=== PATIENT | female | born 1975 | race Caucasian/White ===

== ENCOUNTER 2021-12-05 11:04 | Inpatient (IN) | payer SELFPAY ==
[~2021-12-05] VITALS: Ht 157.5 cm; Wt 61.1 kg
[2021-12-05 11:40] LABS: Calcium, Ionized (POC) 1.18 mmol/L (1.10-1.46); Chloride (POC) 85 mmol/L (98-108); Creatinine (POC) 1.4 mg/dL (0.6-1.0); Glucose (ISTAT POC) >700 mg/dL (70-99); Potassium (POC) 5.4 mmol/L (3.5-5.5); Sodium (POC) 111 mmol/L (135-148); Total CO2 (POC) 9 mmol/L (21-32)
[2021-12-05 11:56] LABS: International Normalized Ratio 1.05
[2021-12-05 11:57] LABS: Source, Urine Foley catheter
[2021-12-05 12:01] LABS: Appearance, Urine Clear (Clear); Bilirubin, Urine Neg (Neg); Blood, Urine 4+ (Neg); Color, Urine Yellow (P-Yellow); Glucose Qualitative, Urine 4+ (Neg); Ketones, Urine 4+ (Neg); Leukocyte Esterase, Urine Neg (Neg); Nitrite, Urine Neg (Neg); Protein, Urine 2+ (Neg); Specific Gravity, Urine 1.015 (1.003-1.022); Urobilinogen, Urine NORM (Normal)
[2021-12-05 12:08] LABS: Base Excess Venous -25.7 mmol/L; Bicarbonate Venous 8.2 mmol/L (24.0-30.0); PCO2 Venous 29.4 mmHg (38-42)
[2021-12-05 12:09] LABS: pH Blood Venous 6.95 (7.34-7.37)
[2021-12-05 12:11] LABS: Hematocrit 50.5 % (33.0-51.0); Hemoglobin 16.3 g/dL (11.5-16.0); Mean Corpuscular HGB 30.1 pg (26.0-34.0); Mean Corpuscular HGB Conc 32.3 g/dL (31.5-36.5); Mean Corpuscular Volume 93 fL (80-100); Mean Platelet Volume 12.5 fL (9.1-12.4); Platelet Count 473 K/mm3 (150-400); RDW Coefficient Variation 12.5 % (11.7-14.2); RDW Standard Deviation 43.4 fL (35.1-46.3); Red Blood Cell Count 5.41 M/mm3 (3.80-5.20); White Blood Cell Count 24.19 K/mm3 (4.00-11.30)
[2021-12-05 12:13] LABS: Bacteria Rare /hpf; Red Blood Cells, Urine 0-2 /hpf (0-2); Squamous Epithelial Cells Few /hpf (Few); White Blood Cells, Urine 0-2 /hpf (0-5)
[2021-12-05 12:20] LABS: BAND PERCENT MAN 1 % (0-8); BASOPHILS PERCENT MAN 0 % (0-2); EOSINOPHILS PERCENT MAN 0 % (0-6); LYMPHOCYTES ABSOLUTE MAN 0.72 K/mm3 (0.84-5.20); LYMPHOCYTES PERCENT MAN 3 % (21-46); MONOCYTES PERCENT MAN 12 % (4-13); NEUTROPHILS ABSOLUTE MAN 20.56 K/mm3 (1.96-9.15); SEG NEUTROPHILS PERCENT MAN 84 % (41-73); TOTAL CELLS COUNTED 100
[2021-12-05 12:24] LABS: U Amphetamine Screen Not Detected; U Barbituate Screen Not Detected; U Benzodiazapine Screen Not Detected; U Buprenorphine Screen Not Detected; U Cannabinoids Screen Not Detected; U Cocaine Screen Not Detected; U Methadone Screen Not Detected; U Methamphetamine Screen Not Detected; U Opiates Screen Not Detected; U Oxycodone Screen Not Detected; U Phencyclidine Screen Not Detected; U Propoxyphene Screen Not Detected
[2021-12-05 12:25] LABS: Albumin, Blood 3.4 g/dL (3.4-5.0); Albumin/Globulin Ratio 0.7 (0.8-1.8); Bilirubin, Total 0.5 mg/dL (0.1-1.0); Bun/Creatinine Ratio 39.2 (12.0-20.0); Calcium, Blood 9.4 mg/dL (8.5-10.1); Creatinine, Blood 1.43 mg/dL (0.40-1.00); Globulin, Blood 5.1 g/dL (2.2-4.0); Potassium, Blood 5.2 mmol/L (3.5-5.5); Total Protein, Blood 8.5 g/dL (6.4-8.2)
[2021-12-05 13:20] LABS: Glucose, Blood 835 mg/dL (70-99)
[2021-12-05 13:22] LABS: Potassium, Blood 4.8 mmol/L (3.5-5.5)
--- NOTE | 2021-12-05 13:40 | NUR ---
RECEIVED PT FROM NET C DEVELOPER S/P STEMI WITH STENT PLACEMENT TO LAD. PT HAS HX OF SMOKING, BUT NO OTHER KNOWN MEDICAL HISTORY. NEW DX DM/DKA. PT REPORTS POLYURIA, AND POLYPHAGIA. PT STATES THAT SHE HAS LOST A LARGE AMOUNT OF WEIGHT IN A SHORT PERIOD OF TIME. PT A&OX4. PT DENIES CP OR SOB. ECG SHOWS SR WITH RATE 90'S-ST ELEVATION NOTED, BUT NO NOTED ARRHYTHMIAS.12 LEAD ECG DONE.BP TRENDING 140'S/90-100'S. DP/PT PULSES PALPABLE AND NO NOTED EDEMA. UPPER AND LOWER EXTREMTIES APPEAR MOTTLED. TR BAND TO RIGHT RADIAL ARTEREOTOMY SITE-10 CC TO CUFF. RIGHT RADIAL SITE IS CLEAR-NO BLEEDING OR HEMATOMA. PT REPORTS "MILD" NUMBNESS TO FINGERS, BUT DENIES PAIN. LUNGS CLEAR NO NOTED COUGH. SATS>90% ON RA. NPO. PT ORAL MUCOSA IS VERY DRY. MOUTH SWAB PROVIDED. CASTILLO TO BSD WITH ADEQUATE AMOUNT OF CLEAR, YELLOW URINE TO BSD. EXTENDED DWELL CATHETER PLACED AND STAT GLUCOSE DRAWN AND SENT TO LAB. DR. MORRIS AND DR. SEPULVEDA UPDATED TO CURRENT VS, LABS, AND STATUS. ORDERS WRITTEN. NS 1 LITER BOLUS INITIATED. INSULIN DRIP @ 0.1 UNITS/KG/HR-WEIGHT ADJUSTED TO 62 KG=6.2 CC/HR. PT SPOUSE RAMIREZ IN FOR VISIT-UPDATED TO PLAN OF CARE AND CONTACT INFO OBTAINED.
[2021-12-05 13:44] LABS: Influenza A, PCR NEGATIVE (NEGATIVE); Influenza B, PCR NEGATIVE (NEGATIVE); Resp Syncytial Virus, PCR NEGATIVE (NEGATIVE); SARS-Cov-2 (COVID-19) PCR, MMC NEGATIVE (NEGATIVE)
[2021-12-05 14:39] LABS: Glucose, Blood 757 mg/dL (70-99)
[2021-12-05 15:34] LABS: Glucose, Blood 562 mg/dL (70-99)
--- NOTE | 2021-12-05 16:00 | NUR ---
PT GRIMACING AND MOANING. PT REPORTS LOW BACK PAIN 5/10 AND HEARTBURN. PT REPOSITIONED AND MED WITH ZOFRAN SHE REPORTS INTERMITTENT NAUSEA-NO IMPROVEMENT. PT GIVEN FIRST DOSE OF METOPROLOL AND LIPITOR. AIR REMOVED FROM TR BAND-PER PROTOCOL. TR BAND IN PLACE WITH 0 AIR TO CUFF X 1 HOUR. ECG CONTINUES SR WITH RATE 90'S. SBP 120'S-ZESTRIL HELD FOR NOW. EXTREMITIES REMAIN MOTTLED AND IT IS VERY DIFFICULT TO OBTAIN SPO2. DR. SEPULVEDA UPDATED OF PT COMPLAINT OF HEARTBURN AND LOW BACK PAIN-ORDERS WRITTEN.
[2021-12-05 16:37] LABS: Potassium, Blood 3.5 mmol/L (3.5-5.5)
--- NOTE | 2021-12-05 17:00 | NUR ---
PT CONTINUES TO REPORT LOW BACK PAIN / DESPITE BEING MEDICATED WITH FENTANYL 25 MCG IVP X 1. ALSO, PT CONTINUES TO REPORT "HEARTBURN." PT DENIES CP OR SOB. ECG CONTINUES SR WITH RATE 90'S. SBP TRENDING 110'S-ZESTRIL HELD. PT MED WITH MAALOX AND PEPCID FOR HEARTBURN AND NORCO FOR LOW BACK PAIN. RIGHT TR BAND REMOVED AND CLEAR OCCLUSIVE DRESSING PLACED-SEE CATH MANAGEMENT FLOWSHEET. CBG 352-INSULIN DRIP DECREASED TO 0.05 UNITS/KG/HR=3.1 UNITS/3.1 CC/HR.
--- NOTE | 2021-12-05 17:49 | NUR ---
PT SLEEPING WHEN NOT DISTURBED.DENIES PAIN WHEN AWAKENED.NO ACUTE DISTRESS NOTED AT THIS TIME.
--- NOTE | 2021-12-05 18:29 | NUR ---
PT APPEARS RESTLESS AND SLIGHTLY CONFUSED. PT STATES " I HAVE TO PEE." PT REMINDED THAT SHE HAS A CASTILLO. PT STATES "OH, YEAH." PT GRIMACING, MOANINING, AND CRYING OUT "COME ON!" WHEN ASKED WHAT PT NEEDS ASSITANCE WITH, PT STATES "I DON'T KNOW!" PT REPORTS THAT SHE FEELS LIKE "CRAP." ATTEMPTED TO REPOSITON PT TO LEFT SIDE, BUT PT SHIFTED HER HIPS BACK TO SUPINE IMMEDIATELY AFTER PILLOWS PLACED. CBG 243 IVF CHANGED TO D5 1/2 NS @ 100 CC/HR. INSULIN DRIP CONTINUES @ 0.05 UNITS/KG/HR-3.1 UNITS/3.1 CC/HR. RIGHT RADIAL SITE CLEAR-NO BLEEDING OR HEMATOMA.
[2021-12-05 20:36] LABS: Albumin/Globulin Ratio 0.7 (0.8-1.8); Bilirubin, Total 0.3 mg/dL (0.1-1.0); Bun/Creatinine Ratio 57.5 (12.0-20.0); Calcium, Blood 8.9 mg/dL (8.5-10.1); Creatinine, Blood 0.75 mg/dL (0.40-1.00); Globulin, Blood 4.1 g/dL (2.2-4.0); Total Protein, Blood 7.1 g/dL (6.4-8.2)
[2021-12-06 01:36] LABS: Albumin, Blood 2.9 g/dL (3.4-5.0); Albumin/Globulin Ratio 0.7 (0.8-1.8); Bilirubin, Total 0.3 mg/dL (0.1-1.0); Bun/Creatinine Ratio 61.9 (12.0-20.0); Calcium, Blood 8.6 mg/dL (8.5-10.1); Creatinine, Blood 0.65 mg/dL (0.40-1.00); Potassium, Blood 3.7 mmol/L (3.5-5.5); Total Protein, Blood 6.9 g/dL (6.4-8.2)
[2021-12-06 04:21] LABS: Hematocrit 39.9 % (33.0-51.0); Hemoglobin 14.4 g/dL (11.5-16.0); Mean Corpuscular HGB 30.5 pg (26.0-34.0); Mean Corpuscular HGB Conc 36.1 g/dL (31.5-36.5); Mean Platelet Volume 11.9 fL (9.1-12.4); Platelet Count 397 K/mm3 (150-400); RDW Coefficient Variation 11.8 % (11.7-14.2); Red Blood Cell Count 4.72 M/mm3 (3.80-5.20)
[2021-12-06 04:30] LABS: Mean Corpuscular Volume 85 fL (80-100)
[2021-12-06 04:46] LABS: Albumin, Blood 2.8 g/dL (3.4-5.0); Albumin/Globulin Ratio 0.7 (0.8-1.8); Bilirubin, Total 0.4 mg/dL (0.1-1.0); Bun/Creatinine Ratio 66.1 (12.0-20.0); Calcium, Blood 8.4 mg/dL (8.5-10.1); Creatinine, Blood 0.62 mg/dL (0.40-1.00); Globulin, Blood 3.9 g/dL (2.2-4.0); Potassium, Blood 3.3 mmol/L (3.5-5.5); Total Protein, Blood 6.7 g/dL (6.4-8.2)
--- NOTE | 2021-12-06 06:30 | NUR ---
SHIFT SUMMARY: PATIENT LARGELY LETHARGIC OVERNIGHT. SLEPT BETWEEN CARE IN CHAIR. INTERMITTENTLY CONFUSED, NEEDED TO BE REMINDED THAT SHE HAD A CASTILLO CATHETER IN. FOLLOWS COMMANDS. CARDIAC WNL, AFEBRILE, SR ON MONITOR WITH ST ELEVATION IN V LEAD. NO COMPLAINT OF CHEST PAIN OR SOB. BP STABLE. MOTTELING NOTED ON KNEES AND HANDS AND CHEST BUT IMPROVING. PATIENT ON ROOM AIR, LUNGS CLEAR. NO BM THIS SHIFT. CASTILLO IN PLACE DRAINING TO GRAVITY. AT BEGINNING OF SHIFT, PATIENT PULLING ON CATHETER CAUSING SOME PINK TINGED URINE. INSULING GTT OFF AT 0300, SC INSULING GIVEN AND SLIDING SCALE ADDED. PATIENT ABLE TO TOLERATE FOOD BUT SHOULD BE WATCHED, HAD DIFFICULTY SWALLOWING PUDDING.
--- NOTE | 2021-12-06 07:56 | NUR ---
PT IS AWAKE AND RESTLESS DURING BEDSIDE REPORT. ENCOURAGED TO REST, HOB PUT DOWN AND PT ABLE TO FALL ASLEEP. BLOOD DRAW DONE, INSULIN COVERAGE GIVEN. PT COOPERATIVE. FALLS BACK TO SLEEP.
[2021-12-06 08:15] LABS: Glucose, Blood 276 mg/dL (70-99)
--- NOTE | 2021-12-06 11:59 | NUR ---
RADHA HASN'T BEEN FEELING SO WELL TODAY. SHE WAS UP TO THE TOILET IN THE ROOM AROUND 0830, HER CASTILLO WAS DC'D WHILE SHE WAS UP. SHE ONLY PICKED AT HER BREAKFAST, HAS BEEN CONTINUING TO COMPLAIN OF ABDOMINAL CRAMPING. SHE HAS BEEN MEDICATED WITH MAALOX AND WITH ZOFRAN WITH NO RELIEF. HER BLOOD SUGAR WAS 354, COVERED WITH 10U INSULIN. CALL TO , ORDERS RECEIVED. AWAIT LAB. AT HER SIDE. SHE HAD A VISIT FROM , AND HER ECHO WAS COMPLETE.
[2021-12-06 12:10] LABS: Bun/Creatinine Ratio 62.3 (12.0-20.0); Calcium, Blood 9.2 mg/dL (8.5-10.1); Creatinine, Blood 0.56 mg/dL (0.40-1.00); Potassium, Blood 4.9 mmol/L (3.5-5.5)
--- NOTE | 2021-12-06 12:36 | NUR ---
RADHA CONTINUES TO FEEL THE SAME, TRIED DIFFERENT THINGS THAT MIGHT SOUND APPETIZING TO HER, SHE TOOK IN A COUPLE OF BITES OF APPLESAUCE. HER REPEAT SUGAR WAS 357, NO REAL CHANGE FROM AN HOUR AGO. PT'S WAS HERE, STATES THAT PATIENT HAS BEEN DRINKING SO MUCH ORANGE JUICE FOR THE LAST YEAR THAT SHE WAS "TURNING ACIDIC" AND THAT SHE WAS SO THIRSTY FOR THE LAST COUPLE OF WEEKS. PT'S HIPS AND PELVIS ARE UNCOMFORTABLE. STATES THIS ISN'T NEW TO HER.
--- NOTE | 2021-12-06 14:42 | NUR ---
RADHA CONTINUES TO BE VERY STOIC. IT IS VERY DIFFICULT TO ASSESS HER VIA VISUAL EXAMINATION, SHE IS QUITE DELAYED IN HER ANSWERS TO QUESTIONS, SHE DOESN'T HAVE ANY GRIMACE, ANY SMILE, SMIRK, NO FACIAL EXPRESSIONS, NO INNOTATION IN HER VOICE. SHE SAID HER STOMACH CRAMPING IS ABOUT A 6 ON THE 1-10 SCALE. SHE WILL JUST MOAN WITH HER EXHALATION, WHEN QUESTIONED ABOUT DESCRIBING, SHE ISN'T ABLE TO DO SO, OTHER THAN "CRAMPING". NO CHANGES NOTED ON THE HEART MONITOR, BP REMAINS STABLE. NAPPING INTERMITTENTLY, STILL NO APPETITE.
--- NOTE | 2021-12-06 16:04 | NUR ---
RADHA REMAINS UP AND DOWN TO THE IN-ROOM TOILET, SHE IS ABLE TO VOID WITHOUT INCIDENT. SHE CONTINUES TO HAVE BLOOD TINGED URINE FROM THE CATHETER BEING PULLED. QUESTIONED ABOUT MENSTRAL CRAMPING AND PT WASN'T ABLE TO GIVE A CLEAR ANSWER BUT DID AGREE TO A HEATING PAD. THE HEATING PAD IS SET UP AND WARMING. PT CONTINUES WITH THE MOTTLED SKIN FROM JUST ABOVE THE KNEE DOWN, WHEN ASKED ABOUT IT, SHE SAYS THAT SHE HAS HAD IT A LONG TIME. QUESTIONED ABOUT IF IT HAS BEEN WEEKS OR MONTHS AND SHE JUST SAYS, "A LONG TIME".
--- NOTE | 2021-12-06 18:18 | NUR ---
RADHA REMAINS WITHDRAWN AND DIFFICULT TO ENGAGE. SHE MOANS A LOT IN BED AND WHEN QUESTIONED ABOUT WHAT'S WRONG IT IS DIFFICULT FOR HER TO VERBALIZE. HER LACK OF APPETITE IS HINDERING HER PROGRESSION TODAY. HER STATES THAT SHE HASN'T BEEN EATING BUT DRINKING FRUIT JUICES FOR THE LAST SEVERAL MONTHS. THAT SHE HAS HAD VERY POOR INTAKE FOR THE LAST FEW WEEKS. SHE IS WEAK IN TRANS FERS AND SHAKEY. AN ORDER FOR NUTRITION AND PALLIATIVE CARE CONSULTS ARE IN, HOPING THAT PROGRESS CAN BE MADE IN HER DESIRE TO CARE FOR HERSELF AND FIND THINGS THAT WORK FOR HER NEW DIAGNOSIS. HER SUGARS REMAIN ELEVATED TODAY, COVERAGE WITH INSULIN. THE LONG ACTING WAS GIVEN IN THE BRIM STRETCHER. WILL CONTINUE TO CARE FOR HER AND REPORT OFF WHEN ABLE.
[2021-12-07 04:58] LABS: BASOPHILS ABSOLUTE AUTO 0.03 K/mm3 (0.00-0.23); BASOPHILS PERCENT AUTO 0 % (0-2); EOSINOPHILS ABSOLUTE AUTO 0.01 K/mm3 (0.00-0.68); EOSINOPHILS PERCENT AUTO 0 % (0-6); Hemoglobin 14.1 g/dL (11.5-16.0); IMMATURE GRAN ABSOLUTE AUTO 0.05 K/mm3 (0.00-0.10); IMMATURE GRAN PERCENT AUTO 0 % (0-1); LYMPHOCYTES ABSOLUTE AUTO 1.26 K/mm3 (0.84-5.20); LYMPHOCYTES PERCENT AUTO 8 % (21-46); MONOCYTES ABSOLUTE AUTO 0.79 K/mm3 (0.16-1.47); MONOCYTES PERCENT AUTO 5 % (4-13); Mean Corpuscular HGB 30.3 pg (26.0-34.0); Mean Corpuscular HGB Conc 35.3 g/dL (31.5-36.5); Mean Corpuscular Volume 86 fL (80-100); NEUTROPHILS ABSOLUTE AUTO 13.87 K/mm3 (1.96-9.15); NEUTROPHILS PERCENT AUTO 87 % (41-73); Platelet Count 463 K/mm3 (150-400); RDW Coefficient Variation 12.4 % (11.7-14.2); RDW Standard Deviation 38.8 fL (35.1-46.3); Red Blood Cell Count 4.66 M/mm3 (3.80-5.20); White Blood Cell Count 16.01 K/mm3 (4.00-11.30)
[2021-12-07 05:02] LABS: Bun/Creatinine Ratio 63.7 (12.0-20.0); Calcium, Blood 9.4 mg/dL (8.5-10.1); Creatinine, Blood 0.47 mg/dL (0.40-1.00); Potassium, Blood 4.8 mmol/L (3.5-5.5)
--- NOTE | 2021-12-07 06:29 | NUR ---
SHIFT SUMMARY: PATIENT SLEEPING BETWEEN CARE. VERY LETHARGIC AND FLAT AFFECT. PATIENT WANTS JIGGER CROWN POUNCING MACHINE OPERATOR TO ASSESS HOME HEALTH SITUATION. PATIENT DOES NOT FEEL IF SHE HAS ADEQUATE HELP AT HOME ONCE DISCHARGED FROM HOSPITAL. PATIENT LACKS MOTIVATION TO DO ANYTHING. REFUSES TO USE THE CALL SHEPARD. INSTEAD, CALLS OUT. PATIENT IS ORIENTED X 4. FOLLOWS ALL COMMANDS AND IS PLEASANT. BP WNL. LEADS ON MONITOR SHOW ST ELEVATION. AFEBRILE. ON RA MAINTAINING SATS >95%. USED TOILET MULTIPLE TIMES DURING SHIF WITH STANDBY ASSIST. NO BM THIS SHIFT. SKIN LOOKING BETTER THAN PREVIOUS SHIFT.
[2021-12-07 10:13] LABS: CHOL/HDL RATIO 4.2; Cholesterol 178 mg/dL (50-200); HDL Cholesterol 42 mg/dL (>39); LDL/HDL RATIO 2.6; Low Density Lipoprotein Chol 111 mg/dL (0-110); Triglycerides 125 mg/dL (30-160); Very Low Density Lipoprot Chol 25 mg/dL (6-32)
--- NOTE | 2021-12-07 17:19 | NUR ---
SUMMARY PT A/O X4. WITHDRAWN FLAT AFFECT. DENIES CP AND SOB. STILL HAS POOR APPETITE. DIABETIC EDUCATION T/O THE DAY. PT DOES NOT ASK QUESTIONS OR REALLY ENGAGE. SLEPT IN RECLINER MOST OF THE DAY THEN BACK TO BED THIS AFTERNOON. PT IS STEADY ON FEET. UNABLE TO GET UA D/T MISSING THE HAT OR SPECIMEN BEING CONTAMINATED BY TOILET PAPER. TALK OF DISCHARGE TODAY BUT DR. LONGORIA WANTED TO CHECK WITH HER BECK OPERATOR THEN IT GOT LATE ENOUGH IN THE DAY THE HAD TO GO TO WORK AND COULD NOT TAKE HER HOME. CASE MANAGEMENT IS HELPING PT GET INSURANCE AND GAVE A LIST OF PCP'S ACCEPTING PT'S. PT DOWNGRADED TO MEDICAL WITH TELE. REPORT GIVEN TO RICHARD TORRES AND PT IS MOVING TO ROOM 355. FAMILY UPDATED ON CHANGE TO MEDICAL STATUS. NO SIGN OF DISTRESS.
--- NOTE | 2021-12-07 19:57 | NUR ---
PT TX FROM ICU 6 TO ROOM 355- PT ORIENTED TO THE ROOM SET UP AND CALL LIGHT. PT IS SLEEPY BUT ANSWERS QUESTIONS APPROPRIATELY- DENIES ANY CHEST PAIN.
--- NOTE | 2021-12-07 22:10 | NUR ---
ST ELEVATION NOTICED ST ELEVATION ON TELEMETRY, CALLED TEACHING ASSISTANT WHO VERIFIED ST ELEVATION. PT IS ASYMPTOMATIC, STATES NO CP OR PRESSURE AND NO SOB. NOTIFIED CHARGE NURSE WHO ADVISED TO CTM FOR CP AND SOB AT THIS TIME.
[2021-12-08 01:33] LABS: Bilirubin, Urine Neg (Neg); Blood, Urine 5+ (Neg); Glucose Qualitative, Urine 3+ (Neg); Ketones, Urine 4+ (Neg); Leukocyte Esterase, Urine 2+ (Neg); Nitrite, Urine Pos (Neg); Protein, Urine 3+ (Neg); Source, Urine Clean Catch; Specific Gravity, Urine 1.015 (1.003-1.022); Urobilinogen, Urine NORM (Normal); pH, Urine 6.5 (5.0-8.0)
[2021-12-08 01:41] LABS: Appearance, Urine Hazy (Clear); Color, Urine Brown (P-Yellow)
[2021-12-08 01:42] LABS: Amorphous Light (0-Heavy); Bacteria Many /hpf; Mucus Light (0-Heavy); Red Blood Cells, Urine TNTC /hpf (0-2); Squamous Epithelial Cells Not Seen /hpf (Few)
[2021-12-08 04:29] LABS: BASOPHILS ABSOLUTE AUTO 0.02 K/mm3 (0.00-0.23); BASOPHILS PERCENT AUTO 0 % (0-2); EOSINOPHILS ABSOLUTE AUTO 0.05 K/mm3 (0.00-0.68); EOSINOPHILS PERCENT AUTO 0 % (0-6); Hematocrit 37.1 % (33.0-51.0); Hemoglobin 13.1 g/dL (11.5-16.0); IMMATURE GRAN ABSOLUTE AUTO 0.05 K/mm3 (0.00-0.10); IMMATURE GRAN PERCENT AUTO 0 % (0-1); LYMPHOCYTES PERCENT AUTO 10 % (21-46); MONOCYTES ABSOLUTE AUTO 0.68 K/mm3 (0.16-1.47); MONOCYTES PERCENT AUTO 4 % (4-13); Mean Corpuscular HGB 30.3 pg (26.0-34.0); Mean Corpuscular HGB Conc 35.3 g/dL (31.5-36.5); Mean Corpuscular Volume 86 fL (80-100); Mean Platelet Volume 11.4 fL (9.1-12.4); NEUTROPHILS ABSOLUTE AUTO 13.98 K/mm3 (1.96-9.15); NEUTROPHILS PERCENT AUTO 85 % (41-73); Platelet Count 447 K/mm3 (150-400); RDW Coefficient Variation 12.4 % (11.7-14.2); RDW Standard Deviation 38.8 fL (35.1-46.3); Red Blood Cell Count 4.33 M/mm3 (3.80-5.20); White Blood Cell Count 16.38 K/mm3 (4.00-11.30)
--- NOTE | 2021-12-08 04:41 | NUR ---
Shift Summary Pt is new to the floor with a dx of STEMI and had a stent placed this stay. On tele running SR at [address], MD is aware of NEERU. Pt denies CP or pressure and does not have any SOB. PT does have constant abdominal pain which is worse while swallowing, this pain is discouraging PO intake. She has visible blood in the urine, sample was sent off to the lab. Independent in the room, VSS, pleasant and cooperative with care.
[2021-12-08 04:46] LABS: Bun/Creatinine Ratio 49.6 (12.0-20.0); Calcium, Blood 9.4 mg/dL (8.5-10.1); Creatinine, Blood 0.48 mg/dL (0.40-1.00); Potassium, Blood 3.8 mmol/L (3.5-5.5)
--- NOTE | 2021-12-08 11:15 | NUR ---
RN NOTE MS HER DENIES ANY CHEST PAIN OR SOB THIS MORNING. SHE C/O BACK PAIN THAT SHE SAID IS FROM LYING IN BED. ENCOURAGED TO GET UP AND MOVE AROUND ROOM AND TURN IN BED. BRUISES ON KNEES FROM FALL PRIOR TO ADMISSION, SHE SAID THAT SHE WILL CALL TO AMBULATE. BED LOW, CALL LIGHT IN REACH.
--- NOTE | 2021-12-08 13:40 | NUR ---
RN NOTE CALL FROM RADIOLOGY RESIDENT FOR INCREASED ST ELEVATION. MD INFORMED BY PHOTO LAB TECHNICIAN AND ECG DONE ORDERED. VS DONE. PT DENIES CHEST PAIN, STILL HAS 4/10 BACK PAIN. WHEN QUESTIONED SHE SEEMED A LITTLE VAGUE AND HAD TROUBLE REMEMBERING THE MONTH, THEN SEEMED CLEARER IN HER ANSWERS SHORTLY AFTERWARDS. DR LONGORIA AWARE ECG DONE AND SAID HE'S ON HIS WAY TO ASSESS HER.
--- NOTE | 2021-12-08 17:12 | NUR ---
SHIFTY SUMMARY SEE PRIOR RN NOTES. EPISODE OF ST ELEVATION CALLED FROM [facility] ECG AND VS DONE. DR LONGORIA CAME AND DID BEDSIDE ASSESSMENT AND HE CALLED CARDIOLOGY. PT HAD NO CP, NO SOB, DENIED FEELING SYMPTOMATIC. ZOO CARETAKER SPENT TIME EDUCATING PT THIS AFTERNOON. PT ADMINISTED HER INSULIN DOSE AT LUNCH TIME. SHE SAID THAT SHE USED TO GIVE INSULIN TO HER MOTHER, SEEMED TO HAVE A GOOD UNDERSTANDING, BUT WILL NEED TO ADMINISTER ANOTHER DOSE OF INSULIN TO PROVE COMPETENCE AND INCREASE HER CONFIDENCE. C/O 4/10 BACK PAIN. SHE SAID SHE FEELS BETTER LYING ON HER BACK. ENCOURAGED TO CHANGE POSITIONS AND GET UP OUT OF BED. BED LOW, CALL LIGHT IN REACH.
--- NOTE | 2021-12-09 03:42 | NUR ---
SHIFT SUMMARY PATIENT IS A&O X 4- PT NEWLY DIAGNOSED WITH DM- PT EDUCATED RE: INSULIN ADMINISTRATION- PT GAVE SELF INSULIN 2X PER SHIFT WITHOUT COMPLICATIONS- MEDICATED FOR BACK PAIN- PT HAD BLOOD IN URINE- PT REPORTED BLOOD DECREASED WHEN SHE URINATES-PT REMOVED OWN RAC PIV ON ACCIDENT- REPORT THAT PT CONTINUES TO HAVE ST ELEVATION- AWARE AND CONSULTING WITH CARDIOLOGY- PT ANTICIPATES DISCHARGE THIS AM
[2021-12-09] MEDS ORDERED: ATOR80 PO (14:24)
[2021-12-09] MEDS ORDERED: ASPI81CH PO (14:24)
[2021-12-09] MEDS ORDERED: JARDIANCE10 MG PO (14:25)
[2021-12-09] MEDS ORDERED: LISI10 PO (14:26)
[2021-12-09] MEDS ORDERED: NITR.4SL SL (14:26)
[2021-12-09] MEDS ORDERED: BRILINTA90 M1 PO (14:27)
[2021-12-09] MEDS ORDERED: BASAGLAR K100 UNIT/1 SC (14:28)
--- NOTE | 2021-12-09 15:37 | NUR ---
NOTES/DISCHARGE SUMMARY: PATIENT A&OX4. PLEASANT AND COOPERATIVE WITH CARE. USES CALL LIGHT APPROPRIATELY AND ABLE TO ADVOCATE FOR HER NEEDS. AMBULATES TO BATHROOM INDEPENDENTLY. PATIENT DENIED CP/CHEST DISCOMFORT. LUNGS CLEAR T/O. PATIENT RECEIVED 1 UNIT OF INSULIN AT LUNCH TIME FOR BS OF 152. VITAL SIGNS REVIEWED. PATIENT RECEIVED ALL SCHEDULED MEDS THIS SHIFT. PATIENT DISCHARGE HOME. DISCHARGE INSTRUCTIONS PACKET GIVEN TO PATIENT. EDUCATE PATIENT REGARDING ADMITTING DIAGNOSIS, SIGN AND SYMPTOMS, TREATMENT AND NEW PRESCRIBED MEDICATIONS. PATIENT AND SPOUSE STATED UNDERSTANDING AND NO FURTHER QUESTIONS. IV DC'D. RX WAS FAXED TO PATIENT PREFERRED PHARMACY ([facility]). ALL PATIENT PERSONAL BELONGINGS WERE SENT HOME WITH THE PATIENT. PATIENT TRANSPORTED VIA WHEELCHAIR BY [employer] [employer] STAFF [facility] TO PATIENT SPOUSE PRIVATE VEHICLE.
== END 2021-12-09 17:00 | disposition home or self-care (01) | DRG 246 ==
LOC: ER 11:04 → MEDS 11:56 → ICUE 11:56 → ICUW 11:56 → MEDS 11:56 → EDLOC 11:56 → ICUE 14:06 → MEDS 12-07 17:56
PROVIDERS: Emergency Medicine; Internal Medicine Cardiovascular Disease; Student in an Organized Health Care Education/Training Program; ADMIT Internal Medicine
PROC: 027035Z Dilation of Coronary Artery, One Artery with Two Drug-eluting Intraluminal Devices, Percutaneous Approach (ICD-10-PCS; principal; 2021-12-05)
PROC: 4A023N7 Measurement of Cardiac Sampling and Pressure, Left Heart, Percutaneous Approach (ICD-10-PCS; 2021-12-05)
PROC: B2101ZZ Fluoroscopy of Single Coronary Artery using Low Osmolar Contrast (ICD-10-PCS; 2021-12-05)
PROC: B240ZZ3 Ultrasonography of Single Coronary Artery, Intravascular (ICD-10-PCS; 2021-12-05)
DX: I21.09 ST elevation (STEMI) myocardial infarction involving other coronary artery of anterior wall (principal); E11.10 Type 2 diabetes mellitus with ketoacidosis without coma; N17.9 Acute kidney failure, unspecified; E87.1 Hypo-osmolality and hyponatremia; E11.65 Type 2 diabetes mellitus with hyperglycemia; B95.62 Methicillin resistant Staphylococcus aureus infection as the cause of diseases classified elsewhere; I10 Essential (primary) hypertension; F17.210 Nicotine dependence, cigarettes, uncomplicated; Z20.822 Contact with and (suspected) exposure to COVID-19; E87.6 Hypokalemia; Z88.0 Allergy status to penicillin
CPT/HCPCS: 0241U; 36415; 51702; 76937; 80047; 80048; 80051; 80053; 80061; 81001; 81025; 82010; 82803; 82947; 83036; 83735; 83880; 84484; 84681; 85014; 85025; 85027; 85347; 85379; 85610; 85730; 87040; 87077; 87086; 87147; 87186; 92978; 93005; 93010; 93458; 99152; 99153; A9270; C1713; C1725; C1751; C1753; C1769; C1874; C1887; C8929; C9606; J1644; J1815; J2250; J2405; J3010; J7030; J7040; J7042; Q9957; Q9967

== ENCOUNTER 2023-02-03 17:58 | Observation (INO) | payer OTHER ==
[~2023-02-03] VITALS: Ht 157.5 cm; Wt 68.0 kg
[~2023-02-03 17:58] MED LIST: ASPI81CH PO; ATOR80 PO; BASAGLAR K100 UNIT/1 SC; BRILINTA90 M1 PO; JARDIANCE10 MG PO; LISI10 PO; NITR.4SL SL
[2023-02-03 18:51] LABS: BASOPHILS ABSOLUTE AUTO 0.07 K/mm3 (0.00-0.23); BASOPHILS PERCENT AUTO 1 % (0-2); EOSINOPHILS ABSOLUTE AUTO 0.45 K/mm3 (0.00-0.68); EOSINOPHILS PERCENT AUTO 4 % (0-6); Hematocrit 46.7 % (33.0-51.0); Hemoglobin 14.9 g/dL (11.5-16.0); IMMATURE GRAN ABSOLUTE AUTO 0.04 K/mm3 (0.00-0.10); IMMATURE GRAN PERCENT AUTO 0 % (0-1); LYMPHOCYTES ABSOLUTE AUTO 2.32 K/mm3 (0.84-5.20); LYMPHOCYTES PERCENT AUTO 21 % (21-46); MONOCYTES ABSOLUTE AUTO 0.47 K/mm3 (0.16-1.47); MONOCYTES PERCENT AUTO 4 % (4-13); Mean Corpuscular HGB 27.6 pg (26.0-34.0); Mean Corpuscular HGB Conc 31.9 g/dL (31.5-36.5); Mean Corpuscular Volume 87 fL (80-100); Mean Platelet Volume 10.9 fL (9.1-12.4); NEUTROPHILS ABSOLUTE AUTO 7.81 K/mm3 (1.96-9.15); NEUTROPHILS PERCENT AUTO 70 % (41-73); Platelet Count 471 K/mm3 (150-400); RDW Coefficient Variation 13.2 % (11.7-14.2); RDW Standard Deviation 41.6 fL (35.1-46.3); Red Blood Cell Count 5.39 M/mm3 (3.80-5.20); White Blood Cell Count 11.16 K/mm3 (4.00-11.30)
[2023-02-03 19:23] LABS: Albumin, Blood 4.1 g/dL (3.4-5.0); Albumin/Globulin Ratio 0.9 (0.8-1.8); Bilirubin, Total 0.4 mg/dL (0.1-1.0); Bun/Creatinine Ratio 24.5 (12.0-20.0); Calcium, Blood 9.5 mg/dL (8.5-10.1); Creatinine, Blood 1.1 mg/dL (0.40-1.00); Globulin, Blood 4.8 g/dL (2.2-4.0); Potassium, Blood 4.8 mmol/L (3.5-5.5); Total Protein, Blood 8.9 g/dL (6.4-8.2)
[2023-02-03 23:48] VITALS: BP 141/89
--- NOTE | 2023-02-04 04:16 | NUR ---
SHIFT SUMMARY PATIENT IS ALERT AND ORIENTED. PATIENT IS ADMITTED FOR A SUBACUTE INFARCT. PATIENT HAS NO NOTICABLE DECIFITS THIS SHIFT. VITAL SIGNS REVIEWED. NO ACUTE EVENTS THIS SHIFT. PATIENT HAS COMPLAINED OF NAUSEA, MEDICATED PER EMAR WITH GOOD RELIEF. PATIENT HAS NOT COMPLAINED OF SOB, VOMITTING, OR PAIN THIS SHIFT. PATIENT HAS BEEN IND IN ROOM THIS SHIFT. BED IN LOCKED AND LOWEST POSITION. CALL LIGHT IN PLACE. WILL MONITOR UNTIL SHIFT CHANGE.
[2023-02-04 04:47] VITALS: BP 184/105
--- NOTE | 2023-02-04 04:50 | NUR ---
NURSE NOTE SPOKE WITH DR BEAUCHAMP ABOUT HIGH BP. ANYTHING GREATER THAN 200 SYSTOLIC CALL PROVIDER IN THE FIRST 48HR. WILL MONITOR
[2023-02-04 05:20] LABS: BASOPHILS ABSOLUTE AUTO 0.07 K/mm3 (0.00-0.23); BASOPHILS PERCENT AUTO 1 % (0-2); EOSINOPHILS ABSOLUTE AUTO 0.59 K/mm3 (0.00-0.68); EOSINOPHILS PERCENT AUTO 5 % (0-6); Hematocrit 45.6 % (33.0-51.0); Hemoglobin 14.5 g/dL (11.5-16.0); IMMATURE GRAN ABSOLUTE AUTO 0.04 K/mm3 (0.00-0.10); IMMATURE GRAN PERCENT AUTO 0 % (0-1); LYMPHOCYTES ABSOLUTE AUTO 3.75 K/mm3 (0.84-5.20); LYMPHOCYTES PERCENT AUTO 34 % (21-46); MONOCYTES ABSOLUTE AUTO 0.63 K/mm3 (0.16-1.47); MONOCYTES PERCENT AUTO 6 % (4-13); Mean Corpuscular HGB 27.7 pg (26.0-34.0); Mean Corpuscular HGB Conc 31.8 g/dL (31.5-36.5); Mean Corpuscular Volume 87 fL (80-100); Mean Platelet Volume 11.2 fL (9.1-12.4); NEUTROPHILS ABSOLUTE AUTO 5.98 K/mm3 (1.96-9.15); NEUTROPHILS PERCENT AUTO 54 % (41-73); Platelet Count 479 K/mm3 (150-400); RDW Coefficient Variation 13.2 % (11.7-14.2); RDW Standard Deviation 41.8 fL (35.1-46.3); Red Blood Cell Count 5.24 M/mm3 (3.80-5.20); White Blood Cell Count 11.06 K/mm3 (4.00-11.30)
[2023-02-04 05:49] LABS: Albumin, Blood 4.2 g/dL (3.4-5.0); Albumin/Globulin Ratio 0.9 (0.8-1.8); Bilirubin, Total 0.7 mg/dL (0.1-1.0); Bun/Creatinine Ratio 29.3 (12.0-20.0); Calcium, Blood 9.9 mg/dL (8.5-10.1); Creatinine, Blood 0.96 mg/dL (0.40-1.00); Globulin, Blood 4.7 g/dL (2.2-4.0); Potassium, Blood 4.2 mmol/L (3.5-5.5); Total Protein, Blood 8.9 g/dL (6.4-8.2)
[2023-02-04 07:03] VITALS: BP 154/82
[2023-02-04 17:42] VITALS: BP 124/89
[2023-02-04] MEDS ORDERED: CLOP75 PO (19:49)
[2023-02-08 06:09] LABS: HEMOGLOBIN A1C 6.5 % (4.8-5.6)
== END 2023-02-04 21:08 | disposition home or self-care (01) ==
LOC: ER 17:58 → MEDS 17:59
PROVIDERS: Family Medicine; Internal Medicine; Student in an Organized Health Care Education/Training Program; ADMIT Internal Medicine
DX: I63.9 Cerebral infarction, unspecified (principal); H53.8 Other visual disturbances; I25.10 Atherosclerotic heart disease of native coronary artery without angina pectoris; I25.2 Old myocardial infarction; I11.0 Hypertensive heart disease with heart failure; I50.20 Unspecified systolic (congestive) heart failure; E13.9 Other specified diabetes mellitus without complications; D75.839 Thrombocytosis, unspecified; Z87.891 Personal history of nicotine dependence; Z88.0 Allergy status to penicillin; Z79.82 Long term (current) use of aspirin; Z79.4 Long term (current) use of insulin; Z79.899 Other long term (current) drug therapy
CPT/HCPCS: 36415; 70450; 70551; 80053; 82947; 83036; 85025; 85060; 93005; 93010; 93880; 94760; 96372; 96374; 99285-25; A9270; C8929; G0378; J1650; J1815; J2405; Q9957

== ENCOUNTER 2024-05-28 06:45 | Inpatient (IN) | payer OTHER ==
[~2024-05-28] VITALS: Ht 157.5 cm; Wt 79.6 kg
[2024-05-28] VITALS (9 sets, daily range): BP systolic 85–144; BP diastolic 52–91
[~2024-05-28 06:45] MED LIST changes: +CLOP75 PO; +MELO7.5 PO; +METF500 PO; +TOPROL XL25 MG PO
[2024-05-28] MEDS ORDERED: Ondansetron HCl 2 MG / ML 2ML Vial IV ONE ×2 (07:40→09:30)
[2024-05-28] MEDS ORDERED: NS 1,000 ML IV SCH (07:40)
[2024-05-28 07:50] LABS: BASOPHILS ABSOLUTE AUTO 0.06 K/mm3 (0.00-0.23); BASOPHILS PERCENT AUTO 0 % (0-2); EOSINOPHILS PERCENT AUTO 0 % (0-6); Hematocrit 42.1 % (33.0-51.0); Hemoglobin 12.1 g/dL (11.5-16.0); IMMATURE GRAN ABSOLUTE AUTO 0.19 K/mm3 (0.00-0.10); IMMATURE GRAN PERCENT AUTO 1 % (0-1); LYMPHOCYTES ABSOLUTE AUTO 1.54 K/mm3 (0.84-5.20); LYMPHOCYTES PERCENT AUTO 7 % (21-46); MONOCYTES ABSOLUTE AUTO 0.91 K/mm3 (0.16-1.47); MONOCYTES PERCENT AUTO 4 % (4-13); Mean Corpuscular HGB 28.6 pg (26.0-34.0); Mean Corpuscular HGB Conc 28.7 g/dL (31.5-36.5); Mean Corpuscular Volume 100 fL (80-100); Mean Platelet Volume 11.5 fL (9.1-12.4); NEUTROPHILS ABSOLUTE AUTO 19.94 K/mm3 (1.96-9.15); NEUTROPHILS PERCENT AUTO 88 % (41-73); Platelet Count 554 K/mm3 (150-400); RDW Coefficient Variation 12.7 % (11.7-14.2); RDW Standard Deviation 47.3 fL (35.1-46.3); Red Blood Cell Count 4.23 M/mm3 (3.80-5.20); White Blood Cell Count 22.64 K/mm3 (4.00-11.30)
[2024-05-28 08:16] LABS: Albumin, Blood 4.1 g/dL (3.4-5.0); Albumin/Globulin Ratio 0.9 (0.8-1.8); Bilirubin, Total 0.3 mg/dL (0.1-1.0); Bun/Creatinine Ratio 9.1 (12.0-20.0); Calcium, Blood 8.8 mg/dL (8.5-10.1); Creatinine, Blood 10.9 mg/dL (0.40-1.00); Globulin, Blood 4.6 g/dL (2.2-4.0); Potassium, Blood 5.8 mmol/L (3.5-5.5); Total Protein, Blood 8.7 g/dL (6.4-8.2)
[2024-05-28] MEDS ORDERED: Insulin Human Regular 100 UNIT in NS 100 ML IV SCH (08:25)
[2024-05-28 08:41] LABS: Ethanol (Alcohol), Blood, Med <3 mg/dL
[2024-05-28 08:42] LABS: Acetaminophen, Random <2.0 ug/mL (10.0-30.0)
[2024-05-28 09:04] LABS: Base Excess Venous -28.6 mmol/L; Bicarbonate Venous 5.8 mmol/L (24.0-30.0); PCO2 Venous 26.5 mmHg (38-42); pH Blood Venous 6.86 (7.34-7.37)
[2024-05-28] MEDS ORDERED: Sodium Bicarb 8.4% 1 MEQ/ML 50 ML Vial IV ONE ×2 (09:10→13:05)
[2024-05-28] MEDS ORDERED: D5W-1/2NS 1,000 ML IV SCH (09:10)
[2024-05-28] MEDS ORDERED: FentaNYL Citrate 50 MCG/ML 2 ML Injection IV ONE (09:30)
[2024-05-28 10:07] LABS: Source, Urine Clean Catch
[2024-05-28 10:13] LABS: Appearance, Urine Clear (Clear); Bilirubin, Urine Neg (Neg); Blood, Urine 4+ (Neg); Color, Urine Yellow (P-Yellow); Glucose Qualitative, Urine 1+ (Neg); Ketones, Urine 1+ (Neg); Leukocyte Esterase, Urine Neg (Neg); Nitrite, Urine Neg (Neg); Protein, Urine 3+ (Neg); Specific Gravity, Urine 1.025 (1.003-1.022); Urobilinogen, Urine NORM (Normal)
[2024-05-28 10:20] LABS: Bacteria Many /hpf; Squamous Epithelial Cells Many /hpf (Few); White Blood Cells, Urine 0-2 /hpf (0-5)
[2024-05-28 10:24] LABS: U Amphetamine Screen Not Detected; U Barbituate Screen Not Detected; U Benzodiazapine Screen Not Detected; U Buprenorphine Screen Not Detected; U Cannabinoids Screen Not Detected; U Cocaine Screen Not Detected; U Methadone Screen Not Detected; U Methamphetamine Screen Not Detected; U Opiates Screen Not Detected; U Oxycodone Screen Not Detected; U Phencyclidine Screen Not Detected
[2024-05-28 12:12] LABS: Base Excess Venous -25.4 mmol/L; Bicarbonate Venous 7.7 mmol/L (24.0-30.0); PCO2 Venous 23.4 mmHg (38-42)
[2024-05-28] MEDS ORDERED: Sodium Bicarb 8.4% Inj 150 MEQ in Dextrose 5% 1,000 ML IV SCH ×2 (13:00→13:30)
[2024-05-28] MEDS ORDERED: Sodium Zirconium Cyclosilicate 10 GM Packet PO SCH ×3 (13:55→16:00)
[2024-05-28] MEDS ORDERED: Heparin Sodium,Porcine 5,000 UNIT/0.5 ML SDV SC SCH (14:00)
--- NOTE | 2024-05-28 14:07 | NUR ---
pt c/o "indigestion" "chest pain" in epigastric area. Pt reported to Dr Hutton when she was here. AT this time pt is still complaining of the discomfort and Dr. Child was notified. New orders will be coming, troponin and meds for GI upset.
[2024-05-28] MEDS ORDERED: Calcium Carbonate 500 MG Tab Chew PO PRN (14:15)
[2024-05-28 14:22] LABS: Source, Urine Foley catheter
[2024-05-28 14:37] LABS: Appearance, Urine Cloudy (Clear); Bilirubin, Urine Neg (Neg); Blood, Urine 5+ (Neg); Color, Urine Yellow (P-Yellow); Glucose Qualitative, Urine 1+ (Neg); Ketones, Urine 2+ (Neg); Leukocyte Esterase, Urine 1+ (Neg); Nitrite, Urine Neg (Neg); Protein, Urine 3+ (Neg); Specific Gravity, Urine 1.025 (1.003-1.022); Urobilinogen, Urine NORM (Normal)
[2024-05-28 14:52] LABS: Bacteria Many /hpf; Red Blood Cells, Urine 25-50 /hpf (0-2); Renal Epithelial Few /hpf (0-Rare); Squamous Epithelial Cells Mod /hpf (Few); Transitional Epithelial Cells Mod /hpf (0-Rare)
[2024-05-28 14:53] LABS: Bun/Creatinine Ratio 9.3 (12.0-20.0); Calcium, Blood 8.2 mg/dL (8.5-10.1); Creatinine, Blood 10.8 mg/dL (0.40-1.00)
--- NOTE | 2024-05-28 14:58 | NUR ---
Pt states that chest discomfort relieved after taking TUMS. Tolerated taking lokelma p.o. D5 Sodium bicarb infusing at 125 cc /hour. Plan to place a powerglide/PICC line today when RN available. Also infusing insulin gtt at 4.7 cc/hour at this time.
[2024-05-28] MEDS ORDERED: Pantoprazole Sodium 40 MG Injection IV SCH (15:00)
[2024-05-28] MEDS ORDERED: NS 250 ML IV PRN (15:30)
[2024-05-28 15:46] LABS: Creatinine, Urine Random 70.7 mg/dL (27.00-270.00)
[2024-05-28] MEDS ORDERED: CefTRIAXone Sodium 2,000 MG in NS 100 ML IV SCH (16:00)
[2024-05-28 17:56] LABS: Bicarbonate Venous 18.8 mmol/L (24.0-30.0); PCO2 Venous 35.5 mmHg (38-42); pH Blood Venous 7.34 (7.34-7.37)
[2024-05-28 18:22] LABS: Bun/Creatinine Ratio 9.4 (12.0-20.0); Calcium, Blood 7.7 mg/dL (8.5-10.1); Creatinine, Blood 10.8 mg/dL (0.40-1.00); Potassium, Blood 4.5 mmol/L (3.5-5.5)
--- NOTE | 2024-05-28 19:03 | NUR ---
The pt has remained alert, oriented, calm and cooperative, and appears to be in a good mood. Vital signs have been stable. Sinus rhythm to sinus tachycardia, 93-103 bpm noted by bedside monitor. No supplemental oxygen required and lung sounds are clear except for some fine crackles in the base of the right posterior lung. No cough. Pt states she quit smoking in 2022 and only uses marijuana about 1-2 joints per day but recently has transitioned to only using edibles. Chest pain she had in the epigastric area was resolved with TUMS. Tolerated her clear liquid diet this evening very well. Insulin gtt infusing at 1.3 and [id number] gtt continues at 125 cc/hour. Powerglide was placed in the right upper arm and it draws blood. Pt had total of 96 cc urine output since arrival from the ED. She had 10 cc urine output in the ED per report.
[2024-05-28 20:13] LABS: Bun/Creatinine Ratio 9.4 (12.0-20.0); Calcium, Blood 7.4 mg/dL (8.5-10.1); Creatinine, Blood 10.6 mg/dL (0.40-1.00); Potassium, Blood 4.5 mmol/L (3.5-5.5)
[2024-05-28 22:35] LABS: Bun/Creatinine Ratio 10.7 (12.0-20.0); Calcium, Blood 7.1 mg/dL (8.5-10.1); Creatinine, Blood 10.6 mg/dL (0.40-1.00); Potassium, Blood 4.2 mmol/L (3.5-5.5)
[2024-05-29] VITALS (23 sets, daily range): BP systolic 112–163; BP diastolic 80–111
[2024-05-29 02:22] LABS: Bun/Creatinine Ratio 10.6 (12.0-20.0); Calcium, Blood 6.9 mg/dL (8.5-10.1); Creatinine, Blood 10.5 mg/dL (0.40-1.00)
[2024-05-29 06:04] LABS: BASOPHILS ABSOLUTE AUTO 0.02 K/mm3 (0.00-0.23); BASOPHILS PERCENT AUTO 0 % (0-2); EOSINOPHILS PERCENT AUTO 0 % (0-6); Hematocrit 29.3 % (33.0-51.0); IMMATURE GRAN ABSOLUTE AUTO 0.07 K/mm3 (0.00-0.10); IMMATURE GRAN PERCENT AUTO 0 % (0-1); LYMPHOCYTES ABSOLUTE AUTO 1.69 K/mm3 (0.84-5.20); LYMPHOCYTES PERCENT AUTO 11 % (21-46); MONOCYTES ABSOLUTE AUTO 1.09 K/mm3 (0.16-1.47); MONOCYTES PERCENT AUTO 7 % (4-13); Mean Corpuscular HGB Conc 34.1 g/dL (31.5-36.5); Mean Platelet Volume 10.9 fL (9.1-12.4); NEUTROPHILS ABSOLUTE AUTO 12.87 K/mm3 (1.96-9.15); NEUTROPHILS PERCENT AUTO 82 % (41-73); Platelet Count 413 K/mm3 (150-400); RDW Coefficient Variation 12.8 % (11.7-14.2); RDW Standard Deviation 39.6 fL (35.1-46.3); Red Blood Cell Count 3.45 M/mm3 (3.80-5.20); White Blood Cell Count 15.74 K/mm3 (4.00-11.30)
[2024-05-29 06:07] LABS: Mean Corpuscular Volume 85 fL (80-100)
[2024-05-29 06:08] LABS: Albumin, Blood 3.2 g/dL (3.4-5.0); Bilirubin, Total 0.2 mg/dL (0.1-1.0); Bun/Creatinine Ratio 10.7 (12.0-20.0); Calcium, Blood 6.9 mg/dL (8.5-10.1); Creatinine, Blood 10.2 mg/dL (0.40-1.00); Globulin, Blood 3.1 g/dL (2.2-4.0); Potassium, Blood 4.3 mmol/L (3.5-5.5); Total Protein, Blood 6.3 g/dL (6.4-8.2)
[2024-05-29] MEDS ORDERED: Acetaminophen 325 MG TABLET PO PRN (06:30)
--- NOTE | 2024-05-29 06:46 | NUR ---
END OF SHIFT: THIS PT WAS PLEASANT ALL NIGHT AND RESTED MOST OF THE NIGHT. SHE HAS BEEN A&O AND CONVERSATIONAL. SHE COMPLAINED OF A BIT OF PAIN THIS AM IN HER NECK/CHEST THAT SHE SAYS "FEELS SORE". SHE HAS BEEN ON RA AND BP AND HEART RATE HAVE BEEN WNL. HOURLY GLUCOSE CHECKS WERE TAKEN UNTIL SUGARS REMAINED IN LOW 100s FOR SEVERAL HOURS AND INSULIN GTT HAS BEEN ON STANDBY. NO ACUTE EVENTS OVERNIGHT.
[2024-05-29 07:47] LABS: Base Excess Venous 8.8 mmol/L; pH Blood Venous 7.44 (7.34-7.37)
[2024-05-29] MEDS ORDERED: Dextrose 5% 1,000 ML IV SCH (07:50)
[2024-05-29] MEDS ORDERED: Aspirin 81 MG Chew PO SCH (09:00)
[2024-05-29] MEDS ORDERED: Linezolid 600MG/Iso-Dext 300ML 300 ML IV SCH (09:00)
[2024-05-29] MEDS ORDERED: Clopidogrel Bisulfate 75 MG Tab PO SCH (09:00)
[2024-05-29] MEDS ORDERED: Atorvastatin 40 MG Tab PO SCH (09:00)
[2024-05-29] MEDS ORDERED: D5W-NS 1,000 ML IV SCH (09:25)
--- NOTE | 2024-05-29 09:55 | NUR ---
THIS RN ASSUMED CARE OF PT AT 0700. PT IS ALERT AND ORIENTED X4, CALLS APPROPRIATELY AND FOLLOWS COMMANDS. PT HEART RATE IN THE 70s, BLOOD PRESSURE STABLE AT 143/97 MAP OF 111, PT DENIES CHEST PAIN UPON ASSESSMENT. PT IS ON ROOM AIR SOUNDS CLEAR/DIMINISHED, SATTING >92%, PT DENIES SHORTNESS OF BREATH UPON ASSESSMENT. PT HAS CASTILLO CATHETER DRAINING TO GRAVITY. INSULIN DRIP IS RUNNING WITH Q1HR BLOOD SUGAR CHECKS. NO OTHER INTERVENTIONS AT THIS TIME. PLAN OF CARE CONTINUED.
[2024-05-29 11:27] LABS: Bun/Creatinine Ratio 10.5 (12.0-20.0); Calcium, Blood 6.6 mg/dL (8.5-10.1); Creatinine, Blood 10.1 mg/dL (0.40-1.00)
[2024-05-29 15:07] LABS: Bun/Creatinine Ratio 10.8 (12.0-20.0); Calcium, Blood 6.7 mg/dL (8.5-10.1); Creatinine, Blood 9.91 mg/dL (0.40-1.00); Potassium, Blood 3.8 mmol/L (3.5-5.5)
--- NOTE | 2024-05-29 18:24 | NUR ---
PT SUMMARY PT IS STILL ALERT AND ORIENTED X4. PT IS STILL ON THE INSULIN DRIP, GAP IS TRENDING DOWN, CREATININE IS ALSO TRENDING DOWN SLOWLY. BLOOD SUGAR HAS BEEN IN THE 140-220s. Q1HR BLOOD SUGARS ARE STILL GOING ON AND Q4HR CHEM PANELS ARE BEING DRAWN. URINE OUTPUT HAS BEEN GREAT THROUGHOUT THE DAY. NO OTHER ACUTE EVENTS TO REPORT THROUGHOUT THE DAY. PLAN OF CARE CONTINUED.
[2024-05-29 18:58] LABS: Bun/Creatinine Ratio 10.6 (12.0-20.0); Calcium, Blood 6.8 mg/dL (8.5-10.1); Creatinine, Blood 9.9 mg/dL (0.40-1.00); Potassium, Blood 3.8 mmol/L (3.5-5.5)
[2024-05-29 22:35] LABS: Bun/Creatinine Ratio 10.3 (12.0-20.0); Calcium, Blood 6.5 mg/dL (8.5-10.1); Creatinine, Blood 9.75 mg/dL (0.40-1.00); Potassium, Blood 3.7 mmol/L (3.5-5.5)
[2024-05-30] VITALS (15 sets, daily range): BP systolic 106–152; BP diastolic 75–106
[2024-05-30 02:20] LABS: BASOPHILS ABSOLUTE AUTO 0.01 K/mm3 (0.00-0.23); BASOPHILS PERCENT AUTO 0 % (0-2); EOSINOPHILS PERCENT AUTO 0 % (0-6); Hematocrit 28.2 % (33.0-51.0); Hemoglobin 9.7 g/dL (11.5-16.0); IMMATURE GRAN ABSOLUTE AUTO 0.05 K/mm3 (0.00-0.10); IMMATURE GRAN PERCENT AUTO 1 % (0-1); LYMPHOCYTES ABSOLUTE AUTO 1.73 K/mm3 (0.84-5.20); LYMPHOCYTES PERCENT AUTO 18 % (21-46); MONOCYTES ABSOLUTE AUTO 0.69 K/mm3 (0.16-1.47); MONOCYTES PERCENT AUTO 7 % (4-13); Mean Corpuscular HGB 29.6 pg (26.0-34.0); Mean Corpuscular HGB Conc 34.4 g/dL (31.5-36.5); Mean Corpuscular Volume 86 fL (80-100); NEUTROPHILS ABSOLUTE AUTO 7.41 K/mm3 (1.96-9.15); NEUTROPHILS PERCENT AUTO 75 % (41-73); Platelet Count 354 K/mm3 (150-400); RDW Coefficient Variation 13.1 % (11.7-14.2); RDW Standard Deviation 40.5 fL (35.1-46.3); Red Blood Cell Count 3.28 M/mm3 (3.80-5.20); White Blood Cell Count 9.89 K/mm3 (4.00-11.30)
[2024-05-30 02:51] LABS: Bun/Creatinine Ratio 10.4 (12.0-20.0); Calcium, Blood 6.4 mg/dL (8.5-10.1); Creatinine, Blood 9.04 mg/dL (0.40-1.00); Potassium, Blood 4.4 mmol/L (3.5-5.5)
--- NOTE | 2024-05-30 05:42 | NUR ---
END OF SHIFT: PT REMAINS WITH AN ANION GAP OPEN AND CURRENTLY IS AT 16 WITH INSULIN AND D5NS GTTs RUNNING. RATE OF D5NS INCREASED OVERNIGHT WITH BG IN 150s. PT RESTED MOST OF THE NIGHT AND NO ACUTE EVENTS OCCURRED. PT ON RA, HR AND BP WITHIN NORMAL LIMITS, A&O
[2024-05-30 06:59] LABS: Bun/Creatinine Ratio 10.2 (12.0-20.0); Calcium, Blood 6.7 mg/dL (8.5-10.1); Creatinine, Blood 8.98 mg/dL (0.40-1.00); Potassium, Blood 3.2 mmol/L (3.5-5.5)
[2024-05-30 07:53] LABS: pH Blood Venous 7.44 (7.34-7.37)
[2024-05-30 07:54] LABS: Base Excess Venous 6.8 mmol/L; Bicarbonate Venous 29.2 mmol/L (24.0-30.0)
[2024-05-30] MEDS ORDERED: Potassium Chloride 20 MEQ TabCR PO SCH (08:05)
[2024-05-30] MEDS ORDERED: Ondansetron HCl 2 MG / ML 2ML Vial ONE (08:39)
[2024-05-30] MEDS ORDERED: Ondansetron HCl 2 MG / ML 2ML Vial IV PRN (08:40)
--- NOTE | 2024-05-30 08:45 | NUR ---
THIS RN ASSUMED CARE OF PT AT 0700. PT IS ALERT AND ORIENTED X4, FOLLOWS COMMANDS AND CALLS OUT APPROPRIATELY. PT HEART RATE IN THE 70-80s, BLOOD PRESSURE STABLE AT 145/97, PT DENIES CHEST PAIN UPON ASSESSMENT. PT SOUNDS CLEAR/DIMINISHED, ON ROOM AIR SATTING >95%, PT DENIES SHORTNESS OF BREATH. PT HAS CASTILLO CATHETER IN DRAINING TO GRAVITY. PT IS ON AN INSULIN DRIP, WAS BY THIS MORNING, NEW ORDERS HAVE BEEN PLACED FOR LONG ACTING AND TRANSITIONING PT OFF INSULIN DRIP AND NEW ORDERS FOR PO POTASSIUM PLACED. PT HAD SOME N/V AROUND 0845, NOTIFIED AND NEW ORDERS PLACED. NO OTHER INTERVENTIONS AT THIS TIME. PLAN OF CARE CONTINUED.
[2024-05-30] MEDS ORDERED: Insulin Glargine-Yfgn 100 Unit/mL 3 ML SYR SC ONE (09:00)
[2024-05-30] MEDS ORDERED: Insulin Human Lispro 100 Units/ML 3ML Syringe SC SCH ×2 (12:00→16:30)
[2024-05-30 14:40] LABS: Bun/Creatinine Ratio 9.7 (12.0-20.0); Calcium, Blood 6.8 mg/dL (8.5-10.1); Creatinine, Blood 8.31 mg/dL (0.40-1.00)
--- NOTE | 2024-05-30 20:45 | NUR ---
ASSUMPTION OF CARE/ASSESSMENT: ASSUMED CARE OF PT AT 1900; BEDSIDE SHIFT REPORT RECIEVED FROM DEYANIRA TORRES. PT IN BED, A&O X 4, PLEASANT AND COOPERATIVE. ON RA, LUNGS CLEAR T/O, DIM IN THE BASES AND DENIES SOB; SPO2 94<. SR ON MONITOR WITH HR 70'S, SBP 140-150, AND DENIES CHEST PAIN/PRESSURE AT THIS TIME. TEMP CASTILLO IN PLACE PER NEPHROLOGY; URINE CLEAR, YELLOW AND GOOD OUTPUT NOTED. ABD ROUND, SOFT AND NON-TENDER; TOLERATING CLEAR LIQUID DIET WELL. PG TO ROBERT SL AND PATENT, PIV TO LISA PATENT AND INFUSING ANTIBIOTIC. PT ABLE TO MAKE NEEDS KNOWN, BED LOWERED AND CALL LIGHT IN REACH.
[2024-05-30] MEDS ORDERED: HydrALAZINE HCl 20 MG / ML 1ML Vial IV PRN (23:05)
[2024-05-31] VITALS (10 sets, daily range): BP systolic 141–167; BP diastolic 88–123
[2024-05-31 04:58] LABS: BASOPHILS ABSOLUTE AUTO 0.02 K/mm3 (0.00-0.23); BASOPHILS PERCENT AUTO 0 % (0-2); EOSINOPHILS ABSOLUTE AUTO 0.01 K/mm3 (0.00-0.68); EOSINOPHILS PERCENT AUTO 0 % (0-6); Hematocrit 28.3 % (33.0-51.0); Hemoglobin 9.1 g/dL (11.5-16.0); IMMATURE GRAN ABSOLUTE AUTO 0.02 K/mm3 (0.00-0.10); IMMATURE GRAN PERCENT AUTO 0 % (0-1); LYMPHOCYTES ABSOLUTE AUTO 1.94 K/mm3 (0.84-5.20); LYMPHOCYTES PERCENT AUTO 25 % (21-46); MONOCYTES ABSOLUTE AUTO 0.56 K/mm3 (0.16-1.47); MONOCYTES PERCENT AUTO 7 % (4-13); Mean Corpuscular HGB 28.4 pg (26.0-34.0); Mean Corpuscular HGB Conc 32.2 g/dL (31.5-36.5); Mean Corpuscular Volume 88 fL (80-100); Mean Platelet Volume 10.9 fL (9.1-12.4); NEUTROPHILS ABSOLUTE AUTO 5.13 K/mm3 (1.96-9.15); NEUTROPHILS PERCENT AUTO 67 % (41-73); Platelet Count 317 K/mm3 (150-400); RDW Coefficient Variation 12.6 % (11.7-14.2); RDW Standard Deviation 41.2 fL (35.1-46.3); White Blood Cell Count 7.68 K/mm3 (4.00-11.30)
[2024-05-31 05:28] LABS: Albumin, Blood 2.8 g/dL (3.4-5.0); Anion Gap 11 mmol/L (3-11); Blood Urea Nitrogen 70 mg/dL (8-24); Bun/Creatinine Ratio 9.9 (12.0-20.0); CO2, Blood 28 mmol/L (21-32); Calcium, Blood 7.1 mg/dL (8.5-10.1); Chloride, Blood 101 mmol/L (98-108); Creatinine, Blood 7.05 mg/dL (0.40-1.00); Glomerular Filtration Rate 7 (60-); Glucose, Blood 120 mg/dL (70-99); Iron Serum 77 ug/dL (50-170); Percent Saturation 39.5 % (15.0-50.0); Phosphorus, Blood 4.4 mg/dL (2.5-4.9); Potassium, Blood 3.8 mmol/L (3.5-5.5); Sodium, Blood 136 mmol/L (136-145); Total Iron Binding Capacity 195 ug/dL (250-450)
--- NOTE | 2024-05-31 06:12 | NUR ---
SHIFT SUMMARY: NO ACUTE CHANGES OVERNIGHT; VSS THROUGHOUT THE SHIFT. GOOD URINE OUTPUT THIS SHIFT. PT SLEPT FOR MAJORITY OF THE NIGHT. USING CALL LIGHT APPROPRIATE;Y. BED LOWERED, CALL LIGHT IN REACH. WILL REPORT OFF TO ONCOMING RN.
--- NOTE | 2024-05-31 07:00 | NUR ---
ASSUMED CARE OF PATIENT AT APPROXIMATELY 0700. REPORT RECEIVED FROM MELISSA ALVARADO. PT AWAKE IN BED, INTERACTING c STAFF APPROPRIATELY DURING BEDSIDE REPORT. CONTINUOUS CARDIAC MONITORING IN PLACE SHOWS SR, BP STABLE. ON RA c O2 SATURATION > 92%. CASTILLO PATENT AND DRAINING TO GRAVITY. NO ACUTE NEEDS IDENTIFIED AT THIS TIME. SEE SHIFT ASESSMENT FOR FULL DETAILS.
[2024-05-31] MEDS ORDERED: Insulin Human Lispro 100 Units/ML 3ML Syringe SC SCH (11:30)
--- NOTE | 2024-05-31 15:56 | NUR ---
REPORT GIVEN TO RACHAEL DIGGS RN, TO ASSUME CARE OF PATIENT
--- NOTE | 2024-05-31 18:09 | NUR ---
ASSUMED CARE OF PT AT 1600. NEURO: PT ALERT AND ORIENTED. ABLE TO MAKE HER NEEDS KNOWN. MOVES EXTREMITITES WELL. UP TO RECLINER FOR DINNER. CARDIAC: SINUS RHYTHM HR 60S, HTN PULMONARY: LUNGS CLEAR TO AUSCULATION GI: NORMOACTIVE BOWEL TONES. LAST BM: 06/01/23. DENIES ANY NAUSEA. DIET ADVANCED TO CC/RENAL. : URINE IS CLEAR/YELLOW, CASTILLO REMOVED AT 1700 PT DUE TO VOID. MOBILITY: PT MOVED INDEPENDENTLY TO RECLINER.
[2024-06-01] VITALS: BP 151/97
[2024-06-01 03:36] VITALS: BP 155/97
[2024-06-01 03:58] LABS: Albumin, Blood 2.8 g/dL (3.4-5.0); Anion Gap 10 mmol/L (3-11); Blood Urea Nitrogen 54 mg/dL (8-24); Bun/Creatinine Ratio 11.7 (12.0-20.0); CO2, Blood 26 mmol/L (21-32); Calcium, Blood 7.8 mg/dL (8.5-10.1); Chloride, Blood 105 mmol/L (98-108); Creatinine, Blood 4.62 mg/dL (0.40-1.00); Glomerular Filtration Rate 11 (60-); Glucose, Blood 122 mg/dL (70-99); Phosphorus, Blood 3.4 mg/dL (2.5-4.9); Potassium, Blood 3.8 mmol/L (3.5-5.5); Sodium, Blood 137 mmol/L (136-145)
[2024-06-01 04:00] VITALS: BP 155/97
--- NOTE | 2024-06-01 06:00 | NUR ---
SHIFT SUMMARY PATIENT SLEPT MOST OF SHIFT. PATIENT UP TO BATHROOM IN ROOM SEVERAL TIMES WITHOUT CALLING NURSE FOR HELP. PATIENT HAS CALL LIGHT AND DOES USE IT IF SHE NEEDS SOMETHING. PATEINT IS A&OX4. HE IN THE 80-90'S AND SBP 150'S. HAS POWERGLIDE IN RIGHT UPPER ARM AND 20G IN LEFT UPPER ARM BOTH SALINE LOCKED. CALL LIGHT WITHIN REACH.
[2024-06-01] MEDS ORDERED: Insulin Glargine-Yfgn 100 Unit/mL 3 ML SYR SC SCH (09:00)
[2024-06-01] MEDS ORDERED: Lisinopril 10 MG Tab PO SCH (09:00)
[2024-06-01] MEDS ORDERED: HUMALOG KW100 UNIT/1 (09:39)
--- NOTE | 2024-06-01 10:58 | NUR ---
DISCHARGE PAPERWORK REVIEWED WITH PT. IV's REMOVED, PT TOLERATED WELL. PT AMBULATED INDEPENDENTLY FROM UNIT WITH FAMILY FRIEND.
--- NOTE | 2024-06-01 12:34 | NUR ---
ASSUMED CARE OF PATIENT AT APPROXIMATELY 0700. RECEIVED REPORT FROM MELISSA BAIRD. PT IN BED, ALERT AND INTERACTING WITH STAFF. CONTINUOUS CARDIAC MONITORING IN PLACE SHOWS SR, STABLE BP. PT IS ON ROOM AIR WITH SPO2 GREATER THAN 95%. NO NEEDS IDENTIFIED AT THIS MOMENT. SEE SHIFT ASESSMENT FOR FULL DETAILS.
== END 2024-06-01 11:00 | disposition home or self-care (01) | DRG 682 ==
LOC: ER 06:45 → ICUE 11:09 → ERHOLD 11:09 → ICUE 12:25
PROVIDERS: Emergency Medicine; Hospitalist; Internal Medicine; Internal Medicine Nephrology; ADMIT Internal Medicine
DX: N17.0 Acute kidney failure with tubular necrosis (principal); A41.9 Sepsis, unspecified organism; E11.10 Type 2 diabetes mellitus with ketoacidosis without coma; N39.0 Urinary tract infection, site not specified; I50.22 Chronic systolic (congestive) heart failure; I13.0 Hypertensive heart and chronic kidney disease with heart failure and stage 1 through stage 4 chronic kidney disease, or unspecified chronic kidney disease; I42.2 Other hypertrophic cardiomyopathy; E87.5 Hyperkalemia; E87.8 Other disorders of electrolyte and fluid balance, not elsewhere classified; E86.0 Dehydration; E11.22 Type 2 diabetes mellitus with diabetic chronic kidney disease; N18.32 Chronic kidney disease, stage 3b; E78.5 Hyperlipidemia, unspecified; I25.10 Atherosclerotic heart disease of native coronary artery without angina pectoris; Z88.0 Allergy status to penicillin; Z88.8 Allergy status to other drugs, medicaments and biological substances; Z79.82 Long term (current) use of aspirin; Z79.4 Long term (current) use of insulin; Z79.899 Other long term (current) drug therapy; I25.2 Old myocardial infarction; Z86.73 Personal history of transient ischemic attack (TIA), and cerebral infarction without residual deficits; Z95.5 Presence of coronary angioplasty implant and graft
CPT/HCPCS: 36415; 51702; 71045; 76770; 80048; 80053; 80069; 80320; 81001; 81025; 82010; 82570; 82803; 82947; 83540; 83550; 83605; 83690; 84300; 84484; 84540; 85025; 87086; 93306; 96361-59; 96374-59; 96375-59; 96376-59; 99285-25; A9270; C1751; G0480; J0696; J1644; J1815; J2020; J2405; J2470; J3010; J7030; J7042; J7050; J7070

== ENCOUNTER 2024-06-06 16:38 | Emergency (ER) | payer OTHER ==
[~2024-06-06] VITALS: Ht 157.5 cm; Wt 81.7 kg
[~2024-06-06 16:38] MED LIST changes: +HUMALOG KW100 UNIT/1
[2024-06-06] MEDS ORDERED: Magnesium Sulf 2 GM/Water 50ML 50 ML IV SCH (16:50)
[2024-06-06 17:10] LABS: BASOPHILS ABSOLUTE AUTO 0.03 K/mm3 (0.00-0.23); BASOPHILS PERCENT AUTO 0 % (0-2); EOSINOPHILS ABSOLUTE AUTO 0.39 K/mm3 (0.00-0.68); EOSINOPHILS PERCENT AUTO 4 % (0-6); Hematocrit 29.1 % (33.0-51.0); Hemoglobin 9.2 g/dL (11.5-16.0); IMMATURE GRAN ABSOLUTE AUTO 0.09 K/mm3 (0.00-0.10); IMMATURE GRAN PERCENT AUTO 1 % (0-1); LYMPHOCYTES ABSOLUTE AUTO 3.38 K/mm3 (0.84-5.20); LYMPHOCYTES PERCENT AUTO 31 % (21-46); MONOCYTES ABSOLUTE AUTO 0.79 K/mm3 (0.16-1.47); MONOCYTES PERCENT AUTO 7 % (4-13); Mean Corpuscular HGB 28.6 pg (26.0-34.0); Mean Corpuscular HGB Conc 31.6 g/dL (31.5-36.5); Mean Corpuscular Volume 90 fL (80-100); Mean Platelet Volume 10.5 fL (9.1-12.4); NEUTROPHILS ABSOLUTE AUTO 6.21 K/mm3 (1.96-9.15); NEUTROPHILS PERCENT AUTO 57 % (41-73); Platelet Count 560 K/mm3 (150-400); RDW Coefficient Variation 12.9 % (11.7-14.2); RDW Standard Deviation 42.2 fL (35.1-46.3); Red Blood Cell Count 3.22 M/mm3 (3.80-5.20); White Blood Cell Count 10.89 K/mm3 (4.00-11.30)
[2024-06-06 17:30] LABS: Albumin, Blood 3.6 g/dL (3.4-5.0); Bilirubin, Total 0.2 mg/dL (0.1-1.0); Bun/Creatinine Ratio 18.2 (12.0-20.0); Calcium, Blood 8.2 mg/dL (8.5-10.1); Creatinine, Blood 1.37 mg/dL (0.40-1.00); Globulin, Blood 3.5 g/dL (2.2-4.0); Potassium, Blood 4.5 mmol/L (3.5-5.5); Total Protein, Blood 7.1 g/dL (6.4-8.2)
[2024-06-06 21:00] VITALS: BP 138/70
== END 2024-06-06 21:11 | disposition home or self-care (01) ==
LOC: ER 16:38
PROVIDERS: Student in an Organized Health Care Education/Training Program
DX: E83.42 Hypomagnesemia (principal); D64.9 Anemia, unspecified; I13.0 Hypertensive heart and chronic kidney disease with heart failure and stage 1 through stage 4 chronic kidney disease, or unspecified chronic kidney disease; E11.22 Type 2 diabetes mellitus with diabetic chronic kidney disease; N18.30 Chronic kidney disease, stage 3 unspecified; I50.22 Chronic systolic (congestive) heart failure; Z86.73 Personal history of transient ischemic attack (TIA), and cerebral infarction without residual deficits; E78.5 Hyperlipidemia, unspecified; Z79.82 Long term (current) use of aspirin; Z79.4 Long term (current) use of insulin; Z79.899 Other long term (current) drug therapy; Z88.0 Allergy status to penicillin; Z88.8 Allergy status to other drugs, medicaments and biological substances
CPT/HCPCS: 80053; 83735; 85025; J3475

== ENCOUNTER → 2024-12-02 | Outpatient (CLI) | payer OTHER | LOC: LAB 09:25 → LAB SHORT 09:25 | DX: N39.0 Urinary tract infection, site not specified (principal) | CPT/HCPCS: 87086 ==